=== PATIENT | male | born 1970 ===

== ENCOUNTER 2019-06-28 19:00 | Outpatient (CLI) | payer OTHER | END 2019-06-28 19:01 | disposition home or self-care (01) | LOC: SLEEPLAB 19:00 | PROVIDERS: ATTEND Internal Medicine | DX: G47.33 Obstructive sleep apnea (adult) (pediatric) (principal); R09.89 Other specified symptoms and signs involving the circulatory and respiratory systems; R53.83 Other fatigue; R40.0 Somnolence; R35.1 Nocturia; R06.83 Snoring; I10 Essential (primary) hypertension; Z68.41 Body mass index [BMI] 40.0-44.9, adult | CPT/HCPCS: 95806 ==

== ENCOUNTER 2019-07-18 19:30 | Outpatient (CLI) | payer OTHER | END 2019-07-18 19:31 | disposition home or self-care (01) | LOC: SLEEPLAB 19:30 | PROVIDERS: ATTEND Internal Medicine | DX: G47.33 Obstructive sleep apnea (adult) (pediatric) (principal); G47.69 Other sleep related movement disorders | CPT/HCPCS: 95811 ==